=== PATIENT | male | born 1965 | race Caucasian/White ===

== ENCOUNTER 2020-11-01 06:29 | Emergency (ER) | payer SELFPAY ==
[~2020-11-01] VITALS: Ht 172.7 cm; Wt 61.4 kg
[2020-11-01 07:42] LABS: HEMATOCRIT 42.8 % (39.0-50.0); HEMOGLOBIN 14.6 g/dl (14.0-18.0); IMMATURE GRANULOCYTES 0.2 % (0.0-5.0); MEAN CELL VOLUME 111.7 fL CALC (80.0-100.0); MEAN CORPUSCULAR HGB 38.1 pG CALC (26.0-32.0); MEAN CORPUSCULAR HGB CONC 34.1 g/dL CAL (32.0-36.0); NEUT# 2.37 thou/uL (1.82-7.42); RED BLOOD COUNT 3.83 mill/uL (4.70-6.10); RED CELL DISTRI WIDTH 13.5 % (11.5-15.5)
[2020-11-01 08:00] LABS: ALBUMIN 4.7 g/dL (3.2-5.0); ALKALINE PHOSPHATASE 66 u/l (38-126); ANION GAP 11 (6-22 (CALC)); BILIRUBIN, TOTAL 0.6 mg/dL (0.0-1.4); BUN 7 mg/dL (9-20); BUN/CREATININE RATIO 11 (12-20 (CALC)); CARBON DIOXIDE 28 mmol/l (22-30); CHLORIDE 103 mmol/l (95-108); CREATININE 0.7 mg/dL (0.7-1.3); GFR > 60 ML/MIN (>=60 (CALC)); GFR FOR AFR.AMER. > 60 ML/MIN (>=60 (CALC)); LIPASE 144 u/l (23-300); SGOT/AST 43 u/l (17-59); SODIUM 137 mmol/l (137-146); TOTAL PROTEIN 7.4 g/dL (6.3-8.2)
[2020-11-01 08:01] LABS: URINE BILIRUBIN - DIPSTICK NEGATIVE (NEGATIVE); URINE BLOOD DIPSTICK NEGATIVE (NEGATIVE); URINE COLOR YELLOW; URINE GLUCOSE - DIPSTICK NEGATIVE (NEGATIVE); URINE KETONE TRACE mg/dL (NEGATIVE); URINE LEUK ESTERASE NEGATIVE (NEGATIVE); URINE NITRITE - DIPSTICK NEGATIVE (Negative); URINE PROTEIN - DIPSTICK NEGATIVE (NEG-TRACE); URINE UROBILINOGEN - DIPSTICK 0.2 E.U./dL (0.2)
[2020-11-01 08:07] LABS: ACT PARTIAL THROMBO TIME 22.2 SECONDS (20.0-32.5); PROTHROMBIN TIME 9.7 SECONDS (9.0-12.5)
[2020-11-01 09:03] VITALS: BP 124/74
[2020-11-02] MEDS ORDERED: BC FAST PAI1 PO ×2 (10:30→10:31)
[2020-11-02] MEDS ORDERED: BC HEADACH1 PO (10:33)
[2020-11-02] MEDS ORDERED: ASPIRIN ADULT325 MG PO (15:54)
== END 2020-11-01 09:03 | disposition left against medical advice (07) | DRG 66 ==
LOC: ED 06:29
DX: I63.9 Cerebral infarction, unspecified (principal); S00.83XA Contusion of other part of head, initial encounter; S80.211A Abrasion, right knee, initial encounter; F17.210 Nicotine dependence, cigarettes, uncomplicated; W19.XXXA Unspecified fall, initial encounter; Z91.19 Patient's noncompliance with other medical treatment and regimen; Z20.822 Contact with and (suspected) exposure to COVID-19

== ENCOUNTER 2020-11-01 09:16 | Observation (INO) | payer SELFPAY ==
[~2020-11-01] VITALS: Ht 172.7 cm; Wt 61.3 kg
[2020-11-01] VITALS (11 sets, daily range): BP systolic 112–147; BP diastolic 74–93
--- NOTE | 2020-11-01 11:02 | NUR ---
TO ROOM FOR TRIAGE
--- NOTE | 2020-11-01 11:23 | NUR ---
PATIENT RESTING WATCHING TV. NO C/O
--- NOTE | 2020-11-01 12:30 | NUR ---
PATIENT RESTING QUIETLY. AWAITING ADMIISSION.
--- NOTE | 2020-11-01 13:00 | NUR ---
RXOANNE CALLED IN SBAR ORMAT TO ALINE RN IN ICU
--- NOTE | 2020-11-01 13:35 | NUR ---
PT TO ICU BED 3 VIA WHEELCHAIR. PT ABLE TO TRANFER SELF TO BED. PT IS ALERT AND ORIENTED X3. ADMISSION ASSESSMENT COMPLETED AT THIS TIME. IV PATENT X1. NIH 0. PT ORIENTED TO ROOM AND UNIT. PT REQUESTING FOOD AT THIS TIME. EXPLAINED PLAN OF CARE OF MRI, SPEECH THERAPY EVAL AND NPO STATUS. PT VERBALIZED UNDERSTANDING AND IS AGREEABLE TO PLAN. CALL [facility] IN [place]. WILL CONTINUE TO MONITOR.
--- NOTE | 2020-11-01 13:37 | NUR ---
PATIENT TRANSFERRED TO ICU RM 3 VIA WC. STABLE UPON ARRIVAL,IV INTACT.
--- NOTE | 2020-11-01 14:08 | NUR ---
PT TO MRI VIA WHEELCHAIR.
--- NOTE | 2020-11-01 15:00 | NUR ---
PT RETURNED FROM MRI.
--- NOTE | 2020-11-01 15:38 | NUR ---
PT PROVIDED A SNACK AT THIS TIME.
--- NOTE | 2020-11-01 16:36 | NUR ---
JESSE MEJÍA APRN AT BEDSIDE AT THIS TIME.
--- NOTE | 2020-11-01 17:22 | NUR ---
PT REQUEST FOR CELL PHONE TO BE RETRIEVED FROM CAR. SALES PLANNING COORDINATOR ASSISTED WITH SECURITY RETRIEVED CELL PHONE FROM CAR AND GIVEN TO PT. CAR REMAINS UNLOCKED WAS BEFORE, PER PT " IT DOESNT LOCK."
--- NOTE | 2020-11-01 17:48 | NUR ---
PT SITTING UP IN BED EATING PM MEAL. VSS ON MONITOR. CALL LIGHT IN REACH. WILL CONTINUE TO MONITOR.
--- NOTE | 2020-11-01 20:14 | NUR ---
received report for this pt and in bed with eyes open and able to make needs known. skin warm to touch. denies pain and discomfort. respirations are even and non labored. ambulated to toilet with no assist needed. continent of bowel and bladder. call light within reach. Will continue to observe.
[2020-11-02] VITALS (7 sets, daily range): BP systolic 97–138; BP diastolic 56–79
--- NOTE | 2020-11-02 00:32 | NUR ---
pt in bed with eyes closed. no s/s of distress noted. cll light within reach. will continue to observe
--- NOTE | 2020-11-02 04:09 | NUR ---
PT IN BED WOTH EYES CLOSED. NO S/S OF DISTRESS OR DISOMFORT. NO COMPLAINTS OF PAIN. CONTINUES ON TELEMETRY [place] [place] 59. CALL LIGHT IS WITHIN REACH AND BED IN LOW POSITION. WILL CONTINUE TO OBSERVE
[2020-11-02 06:09] LABS: HEMATOCRIT 39.4 % (39.0-50.0); HEMOGLOBIN 13.3 g/dl (14.0-18.0); IMMATURE GRANULOCYTES 0.2 % (0.0-5.0); MEAN CELL VOLUME 111.9 fL CALC (80.0-100.0); MEAN CORPUSCULAR HGB 37.8 pG CALC (26.0-32.0); MEAN CORPUSCULAR HGB CONC 33.8 g/dL CAL (32.0-36.0); NEUT# 2.53 thou/uL (1.82-7.42); RED BLOOD COUNT 3.52 mill/uL (4.70-6.10); RED CELL DISTRI WIDTH 13.4 % (11.5-15.5)
[2020-11-02 06:20] LABS: ALBUMIN 3.8 g/dL (3.2-5.0); ALKALINE PHOSPHATASE 54 u/l (38-126); ANION GAP 10 (6-22 (CALC)); BILIRUBIN, TOTAL 0.6 mg/dL (0.0-1.4); BUN 10 mg/dL (9-20); BUN/CREATININE RATIO 15 (12-20 (CALC)); CARBON DIOXIDE 29 mmol/l (22-30); CHLORIDE 103 mmol/l (95-108); CREATININE 0.7 mg/dL (0.7-1.3); GFR > 60 ML/MIN (>=60 (CALC)); GFR FOR AFR.AMER. > 60 ML/MIN (>=60 (CALC)); POTASSIUM 4.9 mmol/l (3.5-5.1); SGOT/AST 36 u/l (17-59); SODIUM 137 mmol/l (137-146); TOTAL PROTEIN 6.3 g/dL (6.3-8.2)
--- NOTE | 2020-11-02 06:44 | NUR ---
PT IN BED WITH EYES CLOSED. NO S/S OF DISTRESS. MEDS GIVEN AND TOLERATED WELL. CONTINENT OF B/B AND ABLE TO AMBULATE TO TOILET WITH NO ASSIST NEEDED. CALL LIGHT WITHIN [facility]. WILL CNTONUE TO OBSERVE.
--- NOTE | 2020-11-02 07:10 | NUR ---
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 PT AWAKE , ALERT/ORIENTED, UNDERSTANDS THAT HE NEEDS ECHO TODAY AND POSSIBLE DISCHARGE. DENIES ANY COMPLAINTS. CALL LIGHT WITHIN REACH.
--- NOTE | 2020-11-02 09:45 | NUR ---
SPOKE WITH ULTRASOUND AND WILL GET ULTRASOUND DONE TODAY IN APPROX 1 HOUR, ADVISED PT, HE IS WANTING TO GO HOME, STATES FEELS OKAY AT THIS TIME. 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
--- NOTE | 2020-11-02 10:29 | NUR ---
PT REMAINS ALERT/ORIENTED X3, DENIES ANY COMPLAINT OF WEAKNESS , NIH A 0, OT STATES DOES NOT TAKE ANY MEDICATIONS JUST BC POWDER FOR HEADACHE
[2020-11-02] MEDS ORDERED: BC FAST PAI1 PO ×2 (10:30→10:31)
[2020-11-02] MEDS ORDERED: BC HEADACH1 PO (10:33)
--- NOTE | 2020-11-02 12:46 | NUR ---
pt to ultrasound per w/c, advised will now have to wait for doctor reading
--- NOTE | 2020-11-02 12:55 | NUR ---
PT RESTING QUIETLY ON BED, STATES IS A LITTLE ANSTY WAITING FOR ULTRASOUND TEST RESULTS TO COME BACK. DENIES ANY STROKE SYMPTOMS, DENIES DIZZINESS, STATES JUST WANTS TO GO HOME
--- NOTE | 2020-11-02 13:38 | NUR ---
PT JUST WAITING FOR ULTRASOUND RESULTS, STATES DOES NOT WANT TO BE CONINUOUSLY ON MONITER, WANTS TO GET UP AND MOVE AROUND ROOM. STATES NEEDED TO TAKE VITAL SIGNS EVERY ONE IN AWHILE
--- NOTE | 2020-11-02 14:29 | NUR ---
STILL WAITING FOR FINALIZATION OF DISCHARGE INSTRUCTIONS FROM DOCTOR.
[2020-11-02] MEDS ORDERED: ASPIRIN ADULT325 MG PO (15:54)
--- NOTE | 2020-11-02 16:04 | NUR ---
PT DISCHARGED WITH INST. AND WORKNOTE THRU SATURDAY.
== END 2020-11-02 16:00 | disposition home or self-care (01) | DRG 93 ==
LOC: ED 09:16 → ED-I 11:00 → ED 11:00 → ED-I 11:05 → ED 12:12 → ICU 12:13
PROVIDERS: Nurse Practitioner; ADMIT Internal Medicine; ATTEND Internal Medicine
DX: R26.89 Other abnormalities of gait and mobility (principal); R42 Dizziness and giddiness; R53.83 Other fatigue; S09.90XA Unspecified injury of head, initial encounter; F17.200 Nicotine dependence, unspecified, uncomplicated; W19.XXXA Unspecified fall, initial encounter; Z20.822 Contact with and (suspected) exposure to COVID-19; Z72.89 Other problems related to lifestyle

== ENCOUNTER 2021-01-10 22:48 | Emergency (ER) | payer SELFPAY ==
[~2021-01-10] VITALS: Ht 172.7 cm; Wt 69.0 kg
[~2021-01-10 22:48] MED LIST: ASPIRIN ADULT325 MG PO; BC FAST PAI1 PO; BC HEADACH1 PO
[2021-01-10 23:38] LABS: HEMATOCRIT 40.1 % (39.0-50.0); HEMOGLOBIN 14.5 g/dl (14.0-18.0); IMMATURE GRANULOCYTES 0.2 % (0.0-5.0); MEAN CORPUSCULAR HGB 37.5 pG CALC (26.0-32.0); MEAN CORPUSCULAR HGB CONC 36.2 g/dL CAL (32.0-36.0); NEUT# 2.5 thou/uL (1.82-7.42); RED BLOOD COUNT 3.87 mill/uL (4.70-6.10); RED CELL DISTRI WIDTH 14.6 % (11.5-15.5)
[2021-01-10 23:40] LABS: MEAN CELL VOLUME 103.6 fL CALC (80.0-100.0)
[2021-01-10 23:42] LABS: ALBUMIN 4.3 g/dL (3.2-5.0); ALKALINE PHOSPHATASE 78 u/l (38-126); BUN 7 mg/dL (9-20); BUN/CREATININE RATIO 10 (12-20 (CALC)); CHLORIDE 100 mmol/l (95-108); CREATININE 0.7 mg/dL (0.7-1.3); GFR > 60 ML/MIN (>=60 (CALC)); GFR FOR AFR.AMER. > 60 ML/MIN (>=60 (CALC)); POTASSIUM 4.3 mmol/l (3.5-5.1); SODIUM 135 mmol/l (137-146); TOTAL PROTEIN 7.1 g/dL (6.3-8.2)
[2021-01-10 23:53] LABS: ANION GAP 19 (6-22 (CALC)); BILIRUBIN, TOTAL 0.9 mg/dL (0.0-1.4); CARBON DIOXIDE 20 mmol/l (22-30); ETHYL ALCOHOL 372 mg/dl (0-30); SGOT/AST 310 u/l (17-59)
[2021-01-11 09:54] VITALS: BP 116/78
== END 2021-01-11 10:06 | disposition home or self-care (01) | DRG 897 ==
LOC: ED 22:48
PROVIDERS: Family Medicine
DX: F10.129 Alcohol abuse with intoxication, unspecified (principal); F32.9 Major depressive disorder, single episode, unspecified; F17.200 Nicotine dependence, unspecified, uncomplicated